=== PATIENT | female | born 1975 | race Caucasian/White ===

== ENCOUNTER 2017-05-03 18:40 | Emergency (ER) | payer OTHER ==
[~2017-05-03] VITALS: Ht 165.1 cm; Wt 55.5 kg
[~2017-05-03 18:40] MED LIST: EC-NAPROSYN500 MG PO; NICODERM C21 MG/PATC TD; VITAMIN B1 50 MG PO
[2017-05-03] MEDS ORDERED: KLONOPIN 1MG1 MG PO (18:51)
[2017-05-03] MEDS ORDERED: ROXICODONE 55 MG/TAB PO ×2 (18:51→23:20)
[2017-05-03] MEDS ORDERED: PHENERGAN 25 TA25 MG (18:51)
[2017-05-03] MEDS ORDERED: MAG-OX 400400 MG/TAB PO (18:52)
[2017-05-03 19:35] LABS: MEAN CELL VOLUME 101 fl (80.0-100.0); MEAN CORPUSCULAR HGB CONC 32 g/dl (33.0-37.0); MEAN PLATELET VOLUME 12.2 fl (7.4-10.4); PLATELET COUNT 151 K/mm3 (130-400); RED BLOOD COUNT 2.85 M/mm3 (4.10-5.30); WHITE BLOOD COUNT 14.2 K/mm3 (4.8-10.8)
[2017-05-03 19:59] LABS: ADJUSTED CALCIUM 9.7 mg/dL (8.4-10.2); ALANINE AMINOTRANSFERASE 29 U/L (9-52); ALBUMIN 2.4 gm/dL (3.5-5.0); ALKALINE PHOSPHATASE 247 U/L (50-136); ANION GAP 10 mmol/L (7-16); BILIRUBIN,TOTAL 2.4 mg/dL (0.0-1.0); BLOOD UREA NITROGEN 5 mg/dL (7-17); C-REACTIVE PROTEIN 5.7 mg/dL (0.0-0.9); CALCIUM 8.4 mg/dL (8.4-10.2); CARBON DIOXIDE 24 mmol/L (22-30); CHLORIDE 109 mmol/L (98-107); GLUCOSE 79 mg/dL (74-106); LIPASE 47 U/L (23-300); POTASSIUM 3.5 mmol/L (3.4-5.0); SODIUM 143 mmol/L (137-145); TOTAL PROTEIN 6.5 gm/dL (6.4-8.2)
[2017-05-03 20:00] LABS: HEMATOCRIT 28.9 % (37.0-47.0); HEMOGLOBIN 9.2 g/dl (12.5-16.0); MEAN CORPUSCULAR HEMOGLOBIN 32 pg (27.0-31.0)
[2017-05-03 20:01] LABS: ADD PATHOLOGY DIFF REVIEW NO
[2017-05-03 20:13] LABS: BAND 7 % (0-10); NEUTROPHILS 66 % (42.0-75.2); PLATELET ESTIMATE NORMAL (NORMAL); TOTAL CELLS COUNTED 100
[2017-05-03 20:14] LABS: ANISOCYTOSIS 2+; HYPOCHROMIA 1+; TARGET CELLS 1+
[2017-05-03 20:53] LABS: INR 1.4 (0.8-3.0); PROTHROMBIN TIME 15.8 SECONDS (9.7-12.8)
[2017-05-03 21:22] LABS: B-TYPE NATRIURETIC PEPTIDE 657 pg/mL (0-125)
[2017-05-03 21:48] LABS: PH 7 (5-8); URINE APPEARANCE Clear; URINE BILIRUBIN Positive (NEGATIVE); URINE BLOOD Negative (NEGATIVE); URINE COLOR Amber; URINE GLUCOSE Negative (NEGATIVE); URINE KETONE Negative (NEGATIVE); URINE UROBILINOGEN Negative (NEGATIVE)
[2017-05-03 21:49] LABS: URINE RBC 0-2 /hpf
[2017-05-03 21:51] LABS: URINE BACTERIA Rare /hpf
[2017-05-03 22:24] VITALS: TEMP 97.9
[2017-05-03] MEDS ORDERED: ALDACTONE 100M100 MG PO ×2 (23:09→23:32)
[2017-05-03 23:49] VITALS: BP 104/74; PULSE 92
[2017-05-04] MEDS ORDERED: ALDACTONE 100M100 MG PO (02:21)
== END 2017-05-03 23:48 | disposition home or self-care (01) ==
LOC: COL.ER 18:40
PROVIDERS: Emergency Medicine
DX: R60.9 Edema, unspecified (principal); R18.8 Other ascites; K74.60 Unspecified cirrhosis of liver
CPT/HCPCS: J2270; J2405

== ENCOUNTER → 2019-01-12 | Outpatient (CLI) | payer OTHER ==
[~2019-01-12] MED LIST changes: +ALDACTONE 100M100 MG PO; +KLONOPIN 1MG1 MG PO; +MAG-OX 400400 MG/TAB PO; +PHENERGAN 25 TA25 MG; +ROXICODONE 55 MG/TAB PO
== END ==
LOC: MC.RAD 12:49
DX: N63.23 Unspecified lump in the left breast, lower outer quadrant (principal)
CPT/HCPCS: G0279

== ENCOUNTER → 2019-01-19 | Outpatient (CLI) | payer OTHER | LOC: MC.RAD 09:30 | DX: N63.23 Unspecified lump in the left breast, lower outer quadrant (principal) ==

== ENCOUNTER → 2019-03-03 | Outpatient (CLI) | payer OTHER | LOC: ZCOL.LAB 17:04 | DX: R35.0 Frequency of micturition (principal) ==

== ENCOUNTER 2019-07-17 22:42 | Emergency (ER) | payer OTHER ==
[~2019-07-17] VITALS: Ht 165.1 cm; Wt 59.1 kg
[2019-07-17 22:44] VITALS: BP 118/62; TEMP 97.8
[2019-07-17 23:25] VITALS: PULSE 74
== END 2019-07-17 23:25 | disposition home or self-care (01) ==
LOC: COL.ER 22:42
DX: S60.441A External constriction of left index finger, initial encounter (principal); Z87.891 Personal history of nicotine dependence; W49.04XA Ring or other jewelry causing external constriction, initial encounter; Y92.009 Unspecified place in unspecified non-institutional (private) residence as the place of occurrence of the external cause